=== PATIENT | female | born 1935 | race Caucasian/White ===

== ENCOUNTER 2022-01-12 11:33 | Emergency (ER) | payer OTHER ==
[~2022-01-12] VITALS: Ht 162.6 cm; Wt 40.9 kg
[2022-01-12] MEDS ORDERED: SODIUM CHLORIDE 0.9% 500 ML IV ONE (12:15)
[2022-01-12] MEDS ORDERED: LORazepam 2MG/ML-1ML VIAL IV ONE (13:15)
[2022-01-12] MEDS ORDERED: LORazepam 0.5 MG TAB ONE (13:42)
[2022-01-12 14:02] LABS: Basophils # (auto) 0 10 ^3/uL (0-0.2); Basophils % (auto) 0.5 % (0.0-2.0); Eosinophils # (auto) 0.1 10 ^3/uL (0-0.8); Hematocrit 35.1 % (36.0-46.0); Hemoglobin 11.3 g/dL (12.2-16.2); Lymphocytes # (auto) 1.4 10 ^3/uL (0.4-5.4); Mean Corpuscular Hemoglobin 28.5 pg (28.0-32.0); Mean Corpuscular Hgb Conc. 32.2 g/dL (32.0-36.0); Mean Corpuscular Volume 88.3 fL (80.0-100.0); Monocytes # (auto) 1.2 10 ^3/uL (0-1.3); Monocytes % (auto) 11.7 % (0.0-12.0); Neutrophils # (auto) 7.3 10 ^3/uL (1.6-8.6); Neutrophils % (auto) 72.8 % (37.0-80.0); Nucleated Red Blood Cells % 0.1 %; Red Blood Cells 3.97 10^6/uL (4.0-5.20); Red Cell Distribution Width 16.2 % (11.8-14.3)
[2022-01-12 14:09] LABS: Albumin 3.3 g/dL (3.4-5.0); Calcium 9.1 mg/dL (8.5-10.1); Potassium 4.2 mmol/L (3.5-5.1)
[2022-01-12 14:12] LABS: BUN/Creatinine Ratio 47.4; Bilirubin, Total 1.6 mg/dL (0.2-1.0); Total Protein 7.4 g/dL (6.4-8.2)
[2022-01-12 14:16] LABS: Urine Bacteria FEW /hpf (None Seen); Urine Blood Negative /uL (Negative); Urine Mucus FEW (None Seen); Urine Specific Gravity 1.021 (1.001-1.035); Urine WBC 149 /hpf (0 - 5)
[2022-01-12 15:10] LABS: INR 0.97 (0.9-1.15); Partial Thromboplastin Time 30.2 sec (24.6-33.4)
[2022-01-12] MEDS ORDERED: PROTHROMBIN COMPLEX CONCENTRAT IV ONE (15:30)
[2022-01-12] MEDS ORDERED: STERILE WATER IV ONE (15:30)
[2022-01-12 15:34] VITALS: BP 136/76
== END 2022-01-12 15:51 | disposition short-term general hospital (02) ==
LOC: EDBD 11:33 → ER 11:33
DX: S72.091A Other fracture of head and neck of right femur, initial encounter for closed fracture (principal); S06.5X0A Traumatic subdural hemorrhage without loss of consciousness, initial encounter; R94.31 Abnormal electrocardiogram [ECG] [EKG]; W01.0XXA Fall on same level from slipping, tripping and stumbling without subsequent striking against object, initial encounter; Y93.89 Activity, other specified; Y92.89 Other specified places as the place of occurrence of the external cause; Y99.8 Other external cause status
CPT/HCPCS: 36415; 70450; 71045; 74176; 80053; 81001; 84484; 85025; 85610; 85730; 93005; 96360; 96361; 99291; J7040; J7168